=== PATIENT | male | born 1995 | race Caucasian/White ===

== ENCOUNTER 2017-07-27 11:29 | Emergency (ER) | payer BC ==
[2017-07-27] MEDS ORDERED: Ibuprofen 800 MG TAB ONE (12:35)
--- NOTE | 2017-07-27 13:00 | RAD ---
2 VIEWS RIGHT SHOULDER: Date: 07/27/17 COMPARISON: None. HISTORY: Fall, trauma, pain. FINDINGS: There is a comminuted fracture of the mid shaft right clavicle. The distal fracture fragment is displ aced inferiorly by 2.0 cm. No widening of the AC or CC interspace. No evidence for glenohumeral joint dislocation. IMPRESSION: Comminuted and displaced overriding mid shaft right clavicle fracture. POS: [facility]
--- NOTE | 2017-07-27 13:01 | RAD ---
RIGHT CLAVICLE 2 VIEWS: Date: 07/27/17 HISTORY: Clavicle fracture. COMPARISON: Shoulder radiograph same date. FINDINGS: There is a fracture of the mid 1/3 clavicle with overriding, as well as superior displacement of prox imal fragment. There is also a segmental fragment in the craniocaudad AP dimension measuring almost 2 .5 cm. IMPRESSION: Segmental mid clavicular displaced fracture. POS: [facility]
== END 2017-07-27 12:45 | disposition home or self-care (01) ==
LOC: ERS 11:29
DX: S42.021A Displaced fracture of shaft of right clavicle, initial encounter for closed fracture (principal); J45.909 Unspecified asthma, uncomplicated; V89.9XXA Person injured in unspecified vehicle accident, initial encounter

== ENCOUNTER 2017-08-01 11:08 | Day surgery (SDC) | payer BC ==
[2017-07-31 11:21] VITALS: BMI 31.2
[2017-08-01] MEDS ORDERED: CEFAZOLIN/Water 2 GM/20 ML SYRINGE ONE (11:54)
[2017-08-01] MEDS ORDERED: Midazolam HCl 2 mg/2 ml Vial ONE (12:33)
[2017-08-01] MEDS ORDERED: Bupivacaine PF 0.5% 30 ML VIAL ONE (12:48)
[2017-08-01] MEDS ORDERED: Fentanyl 250 MCG/5 ML VIAL ONE (13:03)
[2017-08-01] MEDS ORDERED: Ketorolac Tromethamine 30 MG/ML VIAL ONE (13:10)
[2017-08-01] MEDS ORDERED: PHENYLEPHRINE-NS 100 MCG/ML 10 ML SYRINGE ONE (13:10)
[2017-08-01] MEDS ORDERED: PROPOFOL 200 MG/20 ML VIAL ONE (13:10)
[2017-08-01] MEDS ORDERED: Dexamethasone 20 MG/5 ML VIAL ONE (13:10)
[2017-08-01] MEDS ORDERED: Lidocaine 1% PF 5 ML VIAL ONE (13:10)
[2017-08-01] MEDS ORDERED: ePHEDrine/0.9% NaCl/PF SYRINGE 50 mg/10 ml ONE (13:10)
[2017-08-01] MEDS ORDERED: Meperidine HCl/PF 25 MG/ML VIAL ONE (14:45)
--- NOTE | 2017-08-01 15:39 | RAD ---
RIGHT CLAVICLE INTRAOPERATIVE FLUOROSOCPY 2 VIEWS: HISTORY: Clavicle fracture. FINDINGS: Intraoperative fluoroscopy was provided for internal fixation as performed by Dr. Pike. Spot flu oroscopic images show long stephanie transfixing the clavicle, in anatomic alignment. Fluoro time=12 seconds. POS: [facility]
--- NOTE | 2017-08-02 11:32 | OP ---
DATE OF PROCEDURE: 08/01/2017 PREOPERATIVE DIAGNOSIS: Right clavicle shaft fracture, comminuted. POSTOPERATIVE DIAGNOSIS: Right clavicle shaft fracture, comminuted. SURGICAL PROCEDURE: Open reduction internal fixation of right clavicle fracture. ANESTHESIA: General. SURGEON: Kobe Pike M.D. FIRE SUPERVISOR: Ventura Bustamante PA-C. ESTIMATED BLOOD LOSS: 20 mL IMPLANTS: The Biomet Taylor clavicle pin 3.0 mm. COMPLICATIONS: None. DRAINS: None. SPECIMEN: None. OUTCOME: Satisfactory. INDICATIONS: The patient is a 22-year-old gentleman, status post right clavicle fracture with displa cement and some comminution. The skin is tented, but not immediately at risk. After discussion with patient including risks and benefits, we decided to proceed with open reduction internal fixation. Informed consent has been obtained. I believe all questions answered. DESCRIPTION OF PROCEDURE: The patient was brought to the operating room and a timeout performed foll owed by induction of general anesthesia. The patient was then placed in a semi beach chair position and then a sterile prep and drape was performed of the right upper extremity. Next, a small vertical incision was made centered at the fracture site. After skin was sharply incised, dissection was car ried down bluntly through the fascial layer, exposing the underlying fracture. The two ends of the m ajor fracture component were identified and freed of soft tissue and the butterfly fragment also iden tified and freed of some attaching soft tissue such that it could be mobilized. Next, a drill was pa ssed down the shaft of the medial clavicle fragment and lateral clavicle fragment. This was followed by tapping of both the medial and lateral fragments. Next, the Taylor pin was inserted in retrogr jermaine fashion driving it through the lateral fragment and out through the posterior lateral shoulder un til the coarse threads were engaged in the lateral fragment. The fracture was then reduced with inco rporation of the butterfly fragment held in place with a bone tenaculum and then the clavicle pin was passed across the fracture into the medial fragment getting excellent alignment and stabilization of the fracture. Next, the medial nut was passed over the far lateral end of the clavicle pin getting further compression across the fracture and then the lateral locking nut inserted in standard fashion . The pin was then cut below the surface of the skin at the posterior lateral incision site. Final AP, lateral C-arm images were obtained that showed excellent alignment. The wound was then irrigated with normal saline and then closed in layers with 0 Vicryl for the fascia, 2-0 Vicryl subcutaneously , and maxwell for the skin. Xeroform gauze and tape dressing was applied to the shoulder and then pa tient was transferred to recovery room in stable condition. There were no complications. The patien t tolerated the procedure well.
== END 2017-08-01 16:45 | disposition home or self-care (01) ==
LOC: SDC 11:08
PROVIDERS: ATTEND Orthopaedic Surgery
PROC: 0PS904Z Reposition Right Clavicle with Internal Fixation Device, Open Approach (ICD-10-PCS; principal; 2017-08-01)
DX: S42.021A Displaced fracture of shaft of right clavicle, initial encounter for closed fracture (principal); Z91.011 Allergy to milk products; V19.9XXA Pedal cyclist (driver) (passenger) injured in unspecified traffic accident, initial encounter
CPT/HCPCS: 76001; 96374; J0131; J1100; J1885; J2001; J2175; J2250; J2704; J3010; S0020

== ENCOUNTER 2017-10-28 10:37 | Day surgery (SDC) | payer BC ==
[2017-10-25 15:03] VITALS: BMI 31.5
[2017-10-28] MEDS ORDERED: CEFAZOLIN/Water 2 GM/20 ML SYRINGE ONE (11:22)
[2017-10-28] MEDS ORDERED: Midazolam HCl 2 mg/2 ml Vial ONE ×2 (11:22→12:11)
[2017-10-28] MEDS ORDERED: Bupivacaine PF 0.5% 30 ML VIAL ONE (11:49)
[2017-10-28] MEDS ORDERED: Fentanyl 100 MCG/2 ML VIAL ONE (12:11)
[2017-10-28] MEDS ORDERED: Lidocaine 1% PF 5 ML VIAL ONE (12:20)
[2017-10-28] MEDS ORDERED: PROPOFOL 200 MG/20 ML VIAL ONE (12:20)
[2017-10-28] MEDS ORDERED: Ketorolac Tromethamine 30 MG/ML VIAL ONE (12:20)
[2017-10-28] MEDS ORDERED: ePHEDrine/0.9% NaCl/PF SYRINGE 50 mg/10 ml ONE (12:20)
[2017-10-28] MEDS ORDERED: Ondansetron HCl/PF 4 MG/2 ML Vial ONE (12:20)
[2017-10-28] MEDS ORDERED: Dexamethasone 20 MG/5 ML VIAL ONE (12:20)
--- NOTE | 2017-10-28 15:24 | OP ---
DATE OF SURGERY: 10/28/2017 PREOPERATIVE DIAGNOSIS: Symptomatic retained hardware, right clavicle. POSTOPERATIVE DIAGNOSIS: Symptomatic retained hardware, right clavicle. SURGICAL PROCEDURE: Removal of Saeed pin from right clavicle. ANESTHESIA: General. SURGEON: Kobe Pike M.D. ESTIMATED BLOOD LOSS: 5 mL SPECIMEN: [place] pin. COMPLICATIONS: None. DRAINS: None. OUTCOME: Satisfactory. INDICATIONS: The patient is a 22-year-old gentleman status post clavicle fracture treated with a Marv kwood pin. The patient has gone on to uneventful union, but is having symptoms secondary to the post erior retained Saeed pin. After discussion with patient including risks and benefits, we decided to proceed with pin removal. Informed consent has been obtained. I believe all questions answered. PROCEDURE IN DETAIL: After the induction of general anesthesia, the patient was positioned in a semi beach chair position and then a sterile prep and drape was performed of the right shoulder. Next, a hypertrophic scar was excised from the posterior incision site. This was then followed by easy palp ation of the pin. The pin was then removed without difficulty. The wound then irrigated with bulb s yringe and closed in layers with 2-0 Vicryl followed by 3-0 nylon. A Xeroform gauze and tape dressin g was applied to the wound. It should be noted prior to dressing application. A 10 mL 0.5% Marcaine was irrigated around the incision for postoperative pain relief. The patient tolerated the procedur e well. There were no complications.
== END 2017-10-28 14:20 | disposition home or self-care (01) ==
LOC: SDC 10:37
PROVIDERS: ATTEND Orthopaedic Surgery
PROC: 0PP904Z Removal of Internal Fixation Device from Right Clavicle, Open Approach (ICD-10-PCS; principal; 2017-10-28)
DX: Z47.2 Encounter for removal of internal fixation device (principal); J45.909 Unspecified asthma, uncomplicated; Z79.2 Long term (current) use of antibiotics; Z91.011 Allergy to milk products
CPT/HCPCS: J2250; J3010; S0020